=== PATIENT | female | born 1940 | race Caucasian/White ===

== ENCOUNTER 2016-06-03 14:13 | Emergency (ER) | payer BC, MEDICARE ==
[~2016-06-03] VITALS: Ht 157.5 cm; Wt 89.5 kg
[2016-06-03 14:22] VITALS: BP 187/93; PULSE 77; RESP 18; TEMP 98.5; O2SAT 97
[2016-06-03] MEDS ORDERED: [UNRECOGNIZED DRUG - REMARK] (14:33)
--- NOTE | 2016-06-03 14:42 | PD ---
HPI Chief Complaint: Foreign Body Time Seen by Provider: 14:42 Travel History International Travel<30 days: No Contact w/Intl Traveler<30days: No Traveled to known affect area: No History of Present Illness HPI 75-year-old female with PMH of HTN presents to the ED for evaluation of foreign body of the right ear. Patient states that a piece of her hearing aid is in the right ear, she is unsure how long its been there. She estimates 2 days. She went to the urgent care where they attempted to remove the object but only succeeded in worsening her pain. She denies fever or chills, sinus congestion, rhinorrhea, cough. She is vacationing in [place] for the next few weeks. NKDA. PFSH Past Medical History Hypertension: Yes Influenza Vaccination: Yes ?: Not Past Surgical History Appendectomy: Yes Other Surgery: Yes (BILAT CARPAL TUNNEL) Social History Alcohol Use: Yes (daily) Tobacco Use: No Substance Use: No Allergies-Medications (Allergen,Severity, Reaction): Coded Allergies: No Known Allergies (Unverified , 06/03/16) Reported Meds & Prescriptions Reported Meds & Active Scripts Active Ofloxacin Otic Drops 0.3 % Drops 5 Drop RIGHT EAR DAILY 7 Days Reported [? bp med] Review of Systems Except as stated in HPI: all other systems reviewed are Neg Physical Exam Narrative GENERAL: Well-nourished, well-developed anxious white female in no acute distress. SKIN: Warm and dry. HEAD: Normocephalic. Atraumatic. EYES: No scleral icterus. No injection or drainage. PERRLA. EOMI. ENT: Right-sided tympanic membrane pearly ramirez, no loss of landmarks. There is a small, plastic, subcentimeter foreign body in the right external canal. Nasal mucosa is moist. Oropharynx without erythema, edema or exudate. NECK: Supple, trachea midline. No JVD or lymphadenopathy. CARDIOVASCULAR: Regular rate and rhythm without murmurs, gallops, or rubs. No carotid bruits. 2+ DP and radial pulses bilaterally. RESPIRATORY: Breath sounds clear and equal bilaterally. No accessory muscle use. GASTROINTESTINAL: Abdomen soft, non-tender, nondistended. + Bowel sounds MUSCULOSKELETAL: No cyanosis, or edema. Full, active range of motion. Strength 5/5. Neurovascularly intact. BACK: Nontender without obvious deformity. No CVA tenderness. Data Data Last Documented VS Vital Signs Date Time Temp Pulse Resp B/P Pulse Ox O2 Delivery O2 Flow Rate FiO2 06/03/16 14:22 98.5 77 18 187/93 97 MDM Medical Decision Making Medical Screen Exam Complete: Yes Emergency Medical Condition: Yes Differential Diagnosis Foreign body versus otitis externa versus ruptured tympanic membrane versus other Narrative Course 75-year-old female with PMH of HTN presents to the ED for evaluation of foreign body of the right ear. Patient states that a piece of her hearing aid is in the right ear, she is unsure how long its been there. She estimates 2 days. She went to the urgent care where they attempted to remove the object but only succeeded in worsening her pain. Vitals reviewed. Physical exam reveals a small, plastic, subcentimeter foreign body in the right external canal. This was removed. Please see procedure note for details. The external canal is erythematous with a small amount of blood, concern for otitis externa. The tympanic membranes pearly ramirez without loss of landmarks or discharge. Patient was prescribed ofloxacin and narcotic drops 10 drops in the ear daily 7 days. She is instructed to apply the medication as prescribed, discontinue hearing aid use until therapy is complete, follow-up with cloth tearer. She indicated understanding of the instructions and is amenable to plan of care. She is stable and discharged home. Procedures Procedure Narrative The otoscope was used to ride the alligator grasper into the external canal. The object was grasped immediately and easily removed. Reevaluation of the external canal reveals erythema with a small amount of blood, concerning for otitis externa. Pearly ramirez tympanic membranes without loss of landmarks or discharge was also observed. The patient tolerated the procedure well. Diagnosis Primary Impression: Acute foreign body of right ear canal Qualified Code: T16.1XXA - Acute foreign body of right ear canal, initial encounter Additional Impression: Otitis externa of right ear Qualified Code: H60.391 - Other infective acute otitis externa of right ear Referrals: Ear / Nose / Throat Specialist Patient Instructions: General Instructions, Otitis Externa (ED) Additional Instructions: Rest, hydrate. Instill 10 drops in the ear daily. Nothing else in the ear until antibiotics are finished. Follow-up with the cloth tearer. Return to the ED for any urgent or emergent medical condition. Med/Other Pt SpecificInfo: Prescription(s) given Scripts Ofloxacin Otic Drops 0.3 % Drops5 Drop RIGHT EAR DAILY 7 Days Ref 0 Prov:Yasmine Cifuentes DO 06/03/16 Disposition: 01 DISCHARGE HOME Condition: Stable Amarilys Scanlon Jun 03, 2016 14:42
[2016-06-03] MEDS ORDERED: OFLO0.3D9 RIGHT EAR (14:54)
== END 2016-06-03 15:21 | disposition home or self-care (01) ==
LOC: PHEFT 14:13
DX: S00.451A Superficial foreign body of right ear, initial encounter (principal); T16.1XXA Foreign body in right ear, initial encounter; H60.91 Unspecified otitis externa, right ear; I10 Essential (primary) hypertension; X58.XXXA Exposure to other specified factors, initial encounter; Y93.9 Activity, unspecified; Y92.9 Unspecified place or not applicable; Y99.9 Unspecified external cause status
CPT/HCPCS: 69200